=== PATIENT | female | born 1940 | race Asian ===

== ENCOUNTER 2017-06-18 22:35 | Inpatient (IN) | payer OTHER ==
[~2017-06-18] VITALS: Ht 165.1 cm; Wt 96.3 kg
[~2017-06-18 22:35] MED LIST: ASPI81TA3 PO; CARV12.540 PO; HYDR12.53 PO
[2017-06-18] MEDS ORDERED: morphine 4 MG/ML VIAL IV STA (23:56)
[2017-06-19] VITALS (12 sets, daily range): BP systolic 126–212; BP diastolic 61–86; PULSE 72–80; RESP 16–20; TEMP 98.2; Ht 165.1 cm; Wt 96.3 kg
[2017-06-19 00:21] LABS: BASOPHILS % 0.5 % (0.0-2.0); EOSINOPHILS # 0.2 10^3/ul (0.0-0.5); EOSINOPHILS % 2.8 % (0.0-7.0); HEMATOCRIT 36.6 % (37.0-47.0); HEMOGLOBIN 12.1 g/dl (12.0-16.0); LYMPHOCYTES # 2.4 10^3/ul (0.8-2.9); MEAN CORPUSCULAR HEMOGLOBIN 28.1 pg (29.0-33.0); MEAN CORPUSCULAR HGB CONC 33.1 g/dl (32.0-37.0); MEAN CORPUSCULAR VOLUME 84.9 fl (82.0-101.0); MEAN PLATELET VOLUME 9.1 fl (7.4-10.4); MONOCYTE # 0.6 10^3/ul (0.3-0.9); MONOCYTES % 9.7 % (0.0-11.0); NEUTROPHIL # 3.1 10^3/ul (1.6-7.5); NEUTROPHILS % 48.7 % (39.0-77.0); PLATELET COUNT 177 10^3/UL (140-415); RED BLOOD COUNT 4.31 10^6/ul (4.20-5.40); RED CELL DISTRIBUTION WIDTH 12.7 % (11.5-14.5); WHITE BLOOD COUNT 6.4 10^3/ul (4.8-10.8)
[2017-06-19 00:34] LABS: INR 0.92; PROTIME 12.4 Sec (12.2-14.2)
[2017-06-19 00:35] LABS: PARTIAL THROMBOPLASTIN TIME 21.9 Sec (25.0-35.0)
[2017-06-19] MEDS ORDERED: SOD CHLORIDE 0.9% 500 ML IV STA (00:38)
[2017-06-19 00:41] LABS: ANION GAP 22 (8-16); BLOOD UREA NITROGEN 26 mg/dl (7-20); CALCIUM 9.6 mg/dl (8.4-10.2); CARBON DIOXIDE 28 mmol/L (21-31); CHLORIDE 94 mmol/L (97-110); GLUCOSE 122 mg/dl (70-220); POTASSIUM 4.5 mmol/L (3.5-5.1); SODIUM 139 mmol/L (135-144)
[2017-06-19 00:53] LABS: TROPONIN-I < 0.012 ng/ml (0.00-0.12)
[2017-06-19] MEDS ORDERED: MELO-109 PO (00:55)
[2017-06-19] MEDS ORDERED: LOSA1TAB19 PO (00:55)
[2017-06-19] MEDS ORDERED: PRAV20TA63 PO ×2 (00:55→09:09)
[2017-06-19] MEDS ORDERED: IBUP200C11 PO (00:55)
[2017-06-19] MEDS ORDERED: ACET-141 PO (00:55)
--- NOTE | 2017-06-19 01:03 | RADRPT ---
PROCEDURE: XR Forearm. CLINICAL INDICATION: Pain. TECHNIQUE: AP and lateral views of the left forearm. COMPARISON: None available. FINDINGS: There is a fracture of the distal radial diaphysis with a full shaft with volar displacement of the distal fracture fragment The joint spaces are preserved. IMPRESSION: 1. Fracture of the distal radial diaphysis with a full shaft with volar displacement of the distal fracture fragment. RPTAT: HTAR .Eber Ness MD, MD Date Time Electronically viewed and signed by .Eber Ness MD, MD on 06/19/2017 01:03 .R/
--- NOTE | 2017-06-19 01:04 | RADRPT ---
PROCEDURE: Portable chest x-ray. CLINICAL INDICATION: Chest pain. TECHNIQUE: Portable AP view of the chest. COMPARISON: 09/28/2014. FINDINGS: There bibasilar opacities, probably atelectasis. No pulmonary edema or conolidation is identified. The cardiac silhouette is magnified. There are aortic calcifications. No pleural effusion is seen. There is no pneumothorax. IMPRESSION: 1. No evidence of acute cardiopulmonary disease. 2. Bibasilar atelectasis. 3. Aortic atherosclerosis. RPTAT: HTAR .Eber Ness MD, MD Date Time Electronically viewed and signed by .Eber Ness MD, MD on 06/19/2017 01:04 .R/
--- NOTE | 2017-06-19 01:06 | RADRPT ---
PROCEDURE: XR Wrist. CLINICAL INDICATION: Pain. TECHNIQUE: Three views of the left wrist. COMPARISON: None available. FINDINGS: There is a fracture of the distal radial diaphysis with a full shaft with volar displacement of the distal fracture fragment and overriding. The distal radioulnar joint is widened. IMPRESSION: 1. Fracture of the distal radial diaphysis with a full shaft with volar displacement of the distal fracture fragment and overriding. 2. Widening of the distal radioulnar joint, suggestive of a ligamentous injury. RPTAT: HTAR .Eber Ness MD, Date Time Electronically viewed and signed by .Eber Ness MD, on 06/19/2017 01:06 .R/
--- NOTE | 2017-06-19 01:07 | RADRPT ---
PROCEDURE: XR Elbow. CLINICAL INDICATION: Pain. TECHNIQUE: 4 views of the left elbow. COMPARISON: None available. FINDINGS: The anterior fat pad is visible, but not elevated. The posterior fat pad is not seen. The anterior humeral and radiocapitellar lines are normal. No fracture or dislocation is identified. The joint spaces are preserved. There is no significant soft tissue swelling. IMPRESSION: 1. No fracture or dislocation of the left elbow. RPTAT: HTAR .Eber Ness MD, Date Time Electronically viewed and signed by .Eber Ness MD, MD on 06/19/2017 01:07 .R/
[2017-06-19] MEDS ORDERED: morphine 4 MG/ML VIAL IV STA ×2 (01:13→04:42)
[2017-06-19] MEDS ORDERED: hydrALAzine 20 MG INJ IV ONE (01:30)
[2017-06-19] MEDS ORDERED: ONDANSETRON 4 MG INJ IV PRN ×2 (02:30→05:00)
[2017-06-19] MEDS ORDERED: ACETAMINOPHEN 325 MG TAB PO PRN ×2 (02:30→05:00)
--- NOTE | 2017-06-19 02:44 | ERA ---
ER Documentation Chief Complaint Date/Time DATE: 06/19/17 TIME: 02:37 Chief Complaint felt dizzy & fell down while standing & sustained left wrist pain/swelling HPI 76-year-old female with a history of hypertension and coronary artery disease presenting after a ground-level fall with left wrist pain. She was at prayer when she stood up, felt dizzy, and fell onto her left wrist. She denies any loss of consciousness or head trauma. She did not have any preceding chest pain , headache, or shortness of breath, however now she complains of sharp sensations in her chest and palpitations. She has shortness of breath, but this is her baseline per her family. She denies any numbness or tingling in her extremities, namely her left hand. She states the pain is in her wrist, 10 out of 10, radiating up her arm. She denies any other injuries or pain. No recent fevers, chills, dysuria, abdominal pain. ROS All systems reviewed and are negative except as per history of present illness. Medications Home Meds Reported Medications Pravastatin Sodium* (Pravastatin Sodium*) 20 Mg Tablet, 20 MG PO HS, TAB 06/19/17 Ibuprofen* (Advil*) 200 Mg Capsule, 200 MG PO Q6H Y for PAIN, CAP 06/19/17 Acetaminophen* (Acetaminophen*) 500 MG Extra Strength Tablet, 500 MG PO Q4H Y for PAIN AND OR ELEVATED TEMP, TAB 06/19/17 Losartan-Hydrochlorothiazide (Losartan-HCTZ) 50-12.5 Mg Tab, 1 TAB PO DAILY, TAB 06/19/17 Meloxicam* (Meloxicam*) Unknown Strength Tablet, 0 PO DAILY, #30 TAB 06/19/17 Carvedilol* (Coreg*) 12.5 Mg Tablet, 12.5 MG PO BID 07/07/12 Aspirin* (Aspirin* Chew) 81 Mg Tab.chew, 81 MG PO DAILY 07/07/12 Discontinued Reported Medications Hydrochlorothiazide (Hydrochlorothiazide) 12.5 Mg Capsule, 12.5 MG PO DAILY Y 07/07/12 Allergies Allergies: Coded Allergies: No Known Allergy (Unverified , 06/19/17) PMhx/Soc History of Surgery: Yes (ME, hernia, Right total knee) Anesthesia Reaction: No Hx Neurological Disorder: No Hx Respiratory Disorders: No Hx Cardiac Disorders: Yes (HTN) Hx Psychiatric Problems: No Hx Miscellaneous Medical Probl: No Hx Alcohol Use: No Hx Substance Use: No Hx Tobacco Use: No Smoking Status: Never smoker FmHx Family History: No diabetes Physical Exam Vitals Vital Signs Date Time Temp Pulse Resp B/P Pulse Ox O2 Delivery O2 Flow Rate FiO2 06/19/17 04:50 98.2 71 20 171/67 97 Room Air 06/19/17 02:12 98.2 73 18 175/76 98 Room Air 06/19/17 00:14 98.1 88 20 193/94 98 Room Air 06/18/17 22:41 97.8 77 20 238/100 100 Physical Exam Const: Well-appearing, nontoxic, in mild distress secondary to wrist pain Head: Atraumatic Eyes: Normal Conjunctiva, PERRLA, EOMI ENT: Normal External Ears, Nose and Mouth. Neck: Full range of motion..~ No meningismus. No JVD Resp: Clear to auscultation bilaterally Cardio: Regular rate and rhythm, no murmurs Abd: Soft, non tender, non distended. Normal bowel sounds Skin: No petechiae or rashes Back: No midline or flank tenderness Ext: No cyanosis, or edema. Left wrist with tenderness to palpation of the distal radius and ulna and tenderness to palpation of the wrist joint. Limited range of motion secondary to pain. Otherwise proximal forearm, elbow, humerus, shoulder nontender. Hand appears normal. Nontender. 2+ radial pulse. Able to grossly move her fingers. Sensations intact. Neur: Awake and alert and oriented 3, cranial nerves intact, strength and sensations intact in all 4 extremities, except left hand, poor effort on strength testing secondary to pain. Psych: Normal Mood and Affect Result Diagram: 06/19/17 0015 06/19/17 0015 Results 24 hrs Laboratory Tests Test 06/19/17 00:15 06/19/17 02:10 White Blood Count 6.410^3/ul Red Blood Count 4.3110^6/ul Hemoglobin 12.1g/dl Hematocrit 36.6% Mean Corpuscular Volume 84.9fl Mean Corpuscular Hemoglobin 28.1pg Mean Corpuscular Hemoglobin Concent 33.1g/dl Red Cell Distribution Width 12.7% Platelet Count 70702^3/UL Mean Platelet Volume 9.1fl Neutrophils % 48.7% Lymphocytes % 38.0% Monocytes % 9.7% Eosinophils % 2.8% Basophils % 0.5% Nucleated Red Blood Cells % 0.0/100WBC Neutrophils # 3.110^3/ul Lymphocytes # 2.410^3/ul Monocytes # 0.610^3/ul Eosinophils # 0.210^3/ul Basophils # 0.010^3/ul Nucleated Red Blood Cells # 0.010^3/ul Prothrombin Time 12.4Sec Prothrombin Time Ratio 1.0 INR International Normalized Ratio 0.92 Activated Partial Thromboplast Time 21.9Sec Sodium Level 139mmol/L Potassium Level 4.5mmol/L Chloride Level 94mmol/L Carbon Dioxide Level 28mmol/L Anion Gap 22 Blood Urea Nitrogen 26mg/dl Creatinine 0.80mg/dl Glucose Level 122mg/dl Calcium Level 9.6mg/dl Troponin I < 0.012ng/ml Urine Color YELLOW Urine Clarity CLEAR Urine pH 6.0 Urine Specific Spurger 1.011 Urine Ketones NEGATIVEmg/dL Urine Nitrite NEGATIVEmg/dL Urine Bilirubin NEGATIVEmg/dL Urine Urobilinogen NEGATIVEmg/dL Urine Leukocyte Esterase TRACELeu/ul Urine Microscopic RBC 2/HPF Urine Microscopic WBC 2/HPF Urine Hemoglobin NEGATIVEmg/dL Urine Glucose NEGATIVEmg/dL Urine Total Protein NEGATIVEmg/dl Current Medications Medications (Trade) Dose Ordered Sig/Annette Route PRN Reason Start Time Stop Time Status Last Admin Dose Admin Morphine Sulfate 4 mg 4 mg ONCE STAT IV 06/18/17 23:56 06/18/17 23:57 DC 06/19/17 00:19 Sodium Chloride (NS) 500 ml @ 500 mls/hr Q1H STAT IV 06/19/17 00:38 06/19/17 01:40 DC 06/19/17 00:44 Morphine Sulfate (morphine) 4 mg ONCE STAT IV 06/19/17 01:13 06/19/17 01:15 DC 06/19/17 01:20 Hydralazine HCl (Apresoline) 10 mg ONCE ONCE IV 06/19/17 01:30 06/19/17 01:31 DC Ondansetron HCl (Zofran Inj) 4 mg ER BRIDGE PRN IV NAUSEA AND/OR VOMITING 06/19/17 02:30 06/20/17 02:29 Acetaminophen (Tylenol Tab) 650 mg ER BRIDGE PRN PO MILD PAIN/FEVER 06/19/17 02:30 06/20/17 02:29 Morphine Sulfate (morphine) 4 mg ONCE STAT IV 06/19/17 04:42 06/19/17 04:43 DC 06/19/17 04:47 IV Flush (NS 3 ml) 3 ml PER PROTOCOL IV 06/19/17 05:00 UNV Ondansetron HCl (Zofran Inj) 4 mg Q6H PRN IV NAUSEA AND/OR VOMITING 06/19/17 05:00 UNV Acetaminophen (Tylenol Tab) 650 mg Q6H PRN PO PAIN LEVEL 1-3 OR FEVER 06/19/17 05:00 UNV Morphine Sulfate (morphine) 3 mg Q4H PRN IV pain 06/19/17 05:00 UNV Albuterol/ Ipratropium (Duoneb) 3 ml Q2H RESP THERAPY PRN HHN SHORTNESS OF BREATH 06/19/17 05:00 UNV Hydralazine HCl (Apresoline) 10 mg Q4H PRN IV sbp > 160 06/19/17 05:00 UNV Procedures/MDM EKG: Rate/Rhythm: Normal Sinus Rhythm QRS, ST, T-waves: No changes consistent w/ acute ischemia Impression: No evidence of ischemia or arrhythmia Imaging: Chest x-ray shows no acute abnormalities X-ray left wrist: IMPRESSION: 1. Fracture of the distal radial diaphysis with a full shaft with volar displacement of the distal fracture fragment and overriding. 2. Widening of the distal radioulnar joint, suggestive of a ligamentous injury. .Eber Ness MD, MD Date Time Electronically viewed and signed by .Eber Ness MD, on 06/19/2017 01:06 X-ray left forearm: IMPRESSION: 1. Fracture of the distal radial diaphysis with a full shaft with volar displacement of the distal fracture fragment. .Eber Ness MD, Date Time Electronically viewed and signed by .Eber Ness MD, MD on 06/19/2017 01:03 X-ray left elbow: No acute fracture dislocation Labs: CBC: no anemia or evidence of infection BMP: Elevated BUN and anion gap Troponin within normal limits UA: no evidence of infection MDM Patient is presenting after a ground-level fall from a near syncopal episode. Her vitals are notable for hypertension, likely secondary to pain in addition to having essential hypertension at baseline. Cardiac workup was started. X- rays of the wrist show evidence of a Galeazzi fracture. Currently she is neurovascularly intact. I spoke with Dr. Tian with orthopedics, will consult on the patient as she will need likely urgent surgery while in the hospital. Patient was given multiple doses of morphine with good pain control. IV fluids were also given as she seems to have some prerenal azotemia. I have a lower suspicion for aortic dissection, acute coronary syndrome, acute stroke or intracranial hemorrhage. Her blood pressure improved with pain control. Patient will be admitted to telemetry and will need preop clearance. Accepting Care Team: Current data and ongoing care discussed. Time: Time of admission Primary Provider: Petty Consulting: Asmita (Orthopedics) Outstanding Data: none Departure Diagnosis: Primary Impression: Near syncope Additional Impressions: Galeazzi's fracture of left radius, initial encounter for closed fracture Hypertensive urgency Condition: Serious ADINA GAMBOA MD Jun 19, 2017 02:44
[2017-06-19 02:45] LABS: ADD UMIC YES; UR ASCORBIC ACID NEGATIVE (NEGATIVE); UR BILIRUBIN (Dip) NEGATIVE (NEGATIVE); UR BLOOD (Dip) NEGATIVE (NEGATIVE); UR CLARITY CLEAR (CLEAR); UR COLOR YELLOW (YELLOW); UR GLUCOSE (Dip) NEGATIVE (NEGATIVE); UR KETONES (Dip) NEGATIVE (NEGATIVE); UR LEUKOCYTE ESTERASE (Dip) TRACE Leu/ul (NEGATIVE); UR NITRITE (Dip) NEGATIVE (NEGATIVE); UR RBC 2 /HPF (0-5); UR SPECIFIC GRAVITY (Dip) 1.011 (1.003-1.030); UR TOTAL PROTEIN (Dip) NEGATIVE (NEGATIVE); UR UROBILINOGEN (Dip) NEGATIVE (NEGATIVE)
[2017-06-19] MEDS ORDERED: hydrALAzine 20 MG INJ IV PRN (05:00)
[2017-06-19] MEDS ORDERED: ALBUTEROL/IPRATROPIUM (NEB) 3 ML AMP HHN PRN (05:00)
[2017-06-19] MEDS ORDERED: NACL 0.9% 3 ML SYG IV SCH (05:00)
[2017-06-19] MEDS: morphine 4 MG/ML VIAL IV PRN ×3 (08:55→18:39)
[2017-06-19] MEDS ORDERED: LOSA1TAB20 PO (09:09)
[2017-06-19] MEDS ORDERED: CARV6.2579 PO (09:09)
[2017-06-19] MEDS ORDERED: POTA2TAB14 PO (09:09)
[2017-06-19] MEDS ORDERED: MELO7.5O PO (09:09)
--- NOTE | 2017-06-19 09:17 | HP ---
Date/Time of Note Date/Time of Note DATE: 06/19/17 TIME: 09:12 Assessment/Plan Lines/Catheters IV Catheter Type (from Nrs): Saline Lock Urinary Cath still in place: No Assessment/Plan Assessment/Plan 1. Left distal radial fracture, status post ground-level fall -Patient is awaiting an ortho evaluation. In the time will provide pain medication as needed. -Given reported dizziness however, I will order a 2D echo and carotid ultrasound 2. Hypertensive urgency -Blood pressure is within acceptable range. Will adjust medication as needed 3. History of CAD -Continue home medication. 4. History of dyslipidemia -Continue statin HPI/ROS Admit Date/Time Admit Date/Time Jun 19, 2017 at 02:07 Hx of Present Illness This is a 76-year-old female with a history of hypertension dyslipidemia and CAD who presented to the emergency department complaining of left wrist pain status post ground-level fall. X-ray in the ER shows distal radial fracture. Patient reported feeling dizzy prior to falling down. Her initial lecture when she came to the ER was 238/100. Denied chest pain shortness of breath fevers chills nausea vomiting. . PMH/Family/Social Social History Smoking Status: Never smoker Exam/Review of Systems Vital Signs Vitals Vital Signs Date Time Temp Pulse Resp B/P Pulse Ox O2 Delivery O2 Flow Rate FiO2 06/19/17 08:12 72 06/19/17 08:07 97.7 18 126/81 97 06/19/17 04:50 Room Air Labs Result Diagram: 06/19/17 0015 06/19/17 0015 Medications Medications Current Medications Ondansetron HCl (Zofran Inj) 4 mg Q6H PRN IV NAUSEA AND/OR VOMITING; Start at 05:00 Acetaminophen (Tylenol Tab) 650 mg Q6H PRN PO PAIN LEVEL 1-3 OR FEVER; Start at 05:00 Morphine Sulfate (morphine) 3 mg Q4H PRN IV pain Last administered on 08:55; Admin Dose 3 MG; Start 06/19/17 at 05:00 Hydralazine HCl (Apresoline) 10 mg Q4H PRN IV sbp > 160 Last administered on 06:25; Admin Dose 10 MG; Start 06/19/17 at 05:00 ISSAC WALTER MD Jun 19, 2017 09:17
[2017-06-19] MEDS ORDERED: ACETAMINOPHEN 500 MG TAB PO PRN (14:30)
[2017-06-19] MEDS: LOSARTAN 50 MG TAB PO SCH (15:44)
[2017-06-19] MEDS: HYDROCHLOROTHIAZIDE 25 MG TAB PO SCH (15:44)
[2017-06-19] MEDS: ATORVASTATIN 10 MG TAB PO SCH (20:40)
[2017-06-19] MEDS ORDERED: NON-FORMULARY/PATIENT OWN MED (Pravastatin Sodium* 20 MG) PO SCH (21:00)
[2017-06-20] VITALS (12 sets, daily range): BP systolic 120–156; BP diastolic 58–67; PULSE 71–89; RESP 16–19
[2017-06-20] MEDS: morphine 4 MG/ML VIAL IV PRN ×5 (00:45→20:36)
[2017-06-20 08:04] LABS: BASOPHILS % 0.1 % (0.0-2.0); EOSINOPHILS # 0.2 10^3/ul (0.0-0.5); EOSINOPHILS % 3.1 % (0.0-7.0); HEMATOCRIT 33.2 % (37.0-47.0); HEMOGLOBIN 10.4 g/dl (12.0-16.0); LYMPHOCYTES # 2.2 10^3/ul (0.8-2.9); LYMPHOCYTES % 29.5 % (15.0-51.0); MEAN CORPUSCULAR HEMOGLOBIN 27.3 pg (29.0-33.0); MEAN CORPUSCULAR HGB CONC 31.3 g/dl (32.0-37.0); MEAN CORPUSCULAR VOLUME 87.1 fl (82.0-101.0); MEAN PLATELET VOLUME 9.2 fl (7.4-10.4); MONOCYTE # 0.7 10^3/ul (0.3-0.9); MONOCYTES % 9.4 % (0.0-11.0); NEUTROPHIL # 4.2 10^3/ul (1.6-7.5); NEUTROPHILS % 57.6 % (39.0-77.0); PLATELET COUNT 180 10^3/UL (140-415); RED BLOOD COUNT 3.81 10^6/ul (4.20-5.40); RED CELL DISTRIBUTION WIDTH 13.4 % (11.5-14.5); WHITE BLOOD COUNT 7.3 10^3/ul (4.8-10.8)
[2017-06-20 08:32] LABS: ALBUMIN 3.7 g/dl (3.3-4.9); ALBUMIN/GLOBULIN RATIO 1.19; BILIRUBIN,INDIRECT 0.5 mg/dl (0-1.1); BILIRUBIN,TOTAL 0.5 mg/dl (0.2-1.3); CALCIUM 8.8 mg/dl (8.4-10.2); CREATININE 1.09 mg/dl (0.44-1.00); MAGNESIUM 1.7 mg/dl (1.7-2.5); PHOSPHORUS 4.2 mg/dl (2.5-4.9); POTASSIUM 4.4 mmol/L (3.5-5.1); TOTAL PROTEIN 6.8 g/dl (6.1-8.1)
[2017-06-20] MEDS: LOSARTAN 50 MG TAB PO SCH (08:36)
[2017-06-20] MEDS: HYDROCHLOROTHIAZIDE 25 MG TAB PO SCH (08:36)
[2017-06-20] MEDS ORDERED: NON-FORMULARY/PATIENT OWN MED (Losartan-Hydrochlorothiazide (Losartan-HCTZ) 1 TAB) PO SCH (09:00)
--- NOTE | 2017-06-20 09:01 | RADRPT ---
PROCEDURE: US carotid arteries. CLINICAL INDICATION: Dizziness. TECHNIQUE: Multiple sonographic images of the carotid arteries and vertebral arteries were obtaine d utilizing vazquez scale, duplex, and color-flow imaging. The images were reviewed on a PACS workstati on. COMPARISON: No prior studies are available for comparison. FINDINGS: Evaluation of the right carotid bifurcation region reveals mild atherosclerotic disease. Evaluation of the left carotid bifurcation region reveals mild atherosclerotic disease. There is antegrade flow within the vertebral arteries bilaterally. RIGHT CAROTID MEASUREMENTS: Common Carotid [id number] (cm/sec) Internal Carotid Artery 103 (cm/sec) External Carotid Artery 124 (cm/sec) Vertebral Artery 86 (cm/sec) Internal Carotid/Common Carotid1.0 LEFT CAROTID MEASUREMENTS: Common Carotid [id number] (cm/sec) Internal Carotid Artery 117 (cm/sec) External Carotid Artery 82 (cm/sec) Vertebral Artery 64 (cm/sec) Internal Carotid/Common Carotid1.0 Validated velocity measurements with angiographic measurements. Velocity criteria are extrapolated f rom diameter data as defined by the Society of Radiologists in Ultrasound Consensus Conference. Radi ology 2003; 229;340-346. This study does indirectly reference the measurement of the distal ICA yenny meter as the denominator for stenosis measurement. IMPRESSION: 1. Less than 50% stenosis bilaterally in the internal carotid arteries. 2. Normal antegrade flow in the vertebral arteries bilaterally. RPTAT: QQ SRU Consensus Conference Criteria for the Diagnosis of Carotid Artery Stenosis* Degree of Stenosis, % ICA PSV, cm/sec Plaque Estimate, % ICA/CCA PSV Ratio Normal <125 None <2.0 <50 <125 <50 <2.0 50 69 125-230 >50 2.0-4.0 >70 but less than near occlusion >230 >50 <4.0 Near occlusion High, low, or undetectable Visible Variable Total occlusion Undetectable Visible, no detectable lumen Not applicable *Cartoid artery stenosis: vazquez-scale and Doppler US diagnosis. Society of Radiologists in Ultrasound Consensus Conference. Radiology 2003; 229: 340-346 .Deandre Fuentes MD, Date Time Electronically viewed and signed by .Deandre Fuentes MD, on 06/20/2017 09:01 .R/
--- NOTE | 2017-06-20 12:47 | CONS ---
Date/Time of Note Date/Time of Note DATE: 06/20/17 TIME: 12:45 Assessment/Plan Assessment/Plan Additional Assessment/Plan Humerus fracture CAD Hypertension Dyslipidemia Anemia she has been ruled out for ACS with serial negative troponin's Awaiting echo prior to clearing for surgery Continue Coreg Continue Lipitor Consultation Date/Type/Reason Admit Date/Time Jun 19, 2017 at 02:07 Initial Consult Date Exam/Review of Systems Vital Signs Vitals Vital Signs Date Time Temp Pulse Resp B/P Pulse Ox O2 Delivery O2 Flow Rate FiO2 06/20/17 12:24 71 06/20/17 11:49 98.7 18 134/58 100 06/19/17 04:50 Room Air Intake and Output 06/19/17 06/19/17 06/20/17 15:00 23:00 07:00 Intake Total 750 ml 600 ml Balance 750 ml 600 ml Exam Constitutional: alert, oriented Head: atraumatic, normocephalic Neck: non-tender, supple Respiratory: clear to auscultation Cardiovascular: regular rate and rhythm Gastrointestinal: nl liver, spleen, non-tender, soft Extremities: normal pulses Results Result Diagram: 06/20/17 0500 06/20/17 0719 Results 24 hrs Laboratory Tests Test 06/19/17 18:43 06/20/17 01:02 06/20/17 05:00 06/20/17 07:19 Troponin I < 0.012 < 0.012 White Blood Count 7.3 Red Blood Count 3.81 L Hemoglobin 10.4 L Hematocrit 33.2 L Mean Corpuscular Volume 87.1 Mean Corpuscular Hemoglobin 27.3 L Mean Corpuscular Hemoglobin Concent 31.3 L Red Cell Distribution Width 13.4 Platelet Count 180 Mean Platelet Volume 9.2 Neutrophils % 57.6 Lymphocytes % 29.5 Monocytes % 9.4 Eosinophils % 3.1 Basophils % 0.1 Nucleated Red Blood Cells % 0.0 Neutrophils # 4.2 Lymphocytes # 2.2 Monocytes # 0.7 Eosinophils # 0.2 Basophils # 0.0 Nucleated Red Blood Cells # 0.0 Sodium Level 135 Potassium Level 4.4 Chloride Level 93 L Carbon Dioxide Level 29 Anion Gap 17 H Blood Urea Nitrogen 28 H Creatinine 1.09 H Glucose Level 124 Calcium Level 8.8 Phosphorus Level 4.2 Magnesium Level 1.7 Total Bilirubin 0.5 Direct Bilirubin 0.00 Indirect Bilirubin 0.5 Aspartate Amino Transf (AST/SGOT) 19 Alanine Aminotransferase (ALT/SGPT) 25 Alkaline Phosphatase 57 Total Protein 6.8 Albumin 3.7 Globulin 3.10 Albumin/Globulin Ratio 1.19 Medications Medications Current Medications Ondansetron HCl (Zofran Inj) 4 mg Q6H PRN IV NAUSEA AND/OR VOMITING; Start at 05:00 Morphine Sulfate (morphine) 3 mg Q4H PRN IV pain Last administered on 08:35; Admin Dose 3 MG; Start 06/19/17 at 05:00 Hydralazine HCl (Apresoline) 10 mg Q4H PRN IV sbp > 160 Last administered on 06:25; Admin Dose 10 MG; Start 06/19/17 at 05:00 Acetaminophen (Tylenol Tab) 500 mg Q4H PRN PO MILD PAIN AND OR ELEVATED TEMP; Start 06/19/17 at 14:30 Carvedilol (Coreg) 6.25 mg BID PO Last administered on 06/20/17 08:37; Admin Dose 6.25 MG; Start 06/19/17 at 21:00 Atorvastatin Calcium (Lipitor) 10 mg DAILY@21 PO Last administered on 20:40; Admin Dose 10 MG; Start 06/19/17 at 21:00 Losartan Potassium (Cozaar) 100 mg DAILY PO Last administered on 06/20/17 08: 36; Admin Dose 100 MG; Start 06/19/17 at 15:00 Hydrochlorothiazide (Hydrochlorothiazide) 25 mg DAILY PO Last administered on 08:36; Admin Dose 25 MG; Start 06/19/17 at 15:00 BRENDAN APPLE M.D. Jun 20, 2017 12:47
--- NOTE | 2017-06-20 14:06 | RADRPT ---
Echocardiogram Report Patient Name: KAYLIE MITCHELL Gender: Female Date: 1940 Study Date: 20-Jun-2017 Night Warehouse Manager: SANDY Location: I Ref. Physician: ALFIE APPLE Quality: Technically Difficult Study Procedures: Transthoracic echocardiogram with complete 2D, M-Mode, and doppler examination. Indications: Pre-op. 2D/M Mode Doppler Measurement Value Normal Ranges Measurement Value Normal Ranges AoR Diam MM 3.2 cm AV Peak George 1.4 m/sec ACS MM 2.1 cm AV Peak PG 7.8 mmHg LVIDd 2D 3.2 3.5 - 5.6 cm LVOT Peak George 1.1 m/sec LVIDs 2D 1.8 2.1 - 4.1 cm LVOT Peak PG 4.6 mmHg LVPWd 2D 1.3 0.6 - 1.1 cm MV E Peak George 0.5 m/sec IVSd 2D 1.3 0.6 - 1.1 cm MV A Peak George 0.7 m/sec EDV 2D 40.4 cm3 MV E/A 0.8 ESV 2D 6.0 cm3 MV Decel Time 240 msec LA Dimen 2D 3.4 2.3 - 4.0 cm MV Decel [place] 2 MV E/A 0.8 PV Peak George 0.9 m/sec PV Peak PG 3.0 mmHg Findings Left Ventricle: Normal left ventricular systolic function. Normal left ventricular cavity size. Mild concentric left ventricular hypertrophy. Ejection fraction is visually estimated at 65 %. Tissue Doppler/Mitral Doppler indices are consistent with impaired relaxation (Stage I diastolic dysfunction). E/E`=6. Right Ventricle: Normal right ventricular size. Normal right ventricular systolic function. Left Atrium: The left atrium is normal in size. Right Atrium: The right atrium is normal in size. Atrial Septum: Normal atrial septum. Mitral Valve: Normal appearance of the mitral valve. No mitral valve regurgitation is seen. Aortic Valve: Normal appearance of the aortic valve. No significant aortic stenosis or insufficiency. Tricuspid Valve: Normal appearance and function of the tricuspid valve with trace physiologic regurgitation. Pulmonic Valve: Normal pulmonic valve appearance. Pericardium: Normal pericardium with no significant pericardial effusion. Aorta: Normal aortic root. IVC: Normal size and normal respiratory collapse consistent with normal right atrial pressure. Pulmonary Artery: Normal pulmonary artery size. Conclusions 1.Normal left ventricular systolic function. Normal left ventricular cavity size. Mild concentric left ventricular hypertrophy. Ejection fraction is visually estimated at 65 %. Tissue Doppler/Mitral Doppler indices are consistent with impaired relaxation (Stage I diastolic dysfunction). E/E`=6. 2.Normal right ventricular size. Normal right ventricular systolic function. 3.Normal appearance of the mitral valve. No mitral valve regurgitation is seen. 4.Normal appearance of the aortic valve. No significant aortic stenosis or insufficiency. 5.Normal appearance and function of the tricuspid valve with trace physiologic regurgitation. Electronically Signed By: Alfie Apple 20-Jun-2017 14:05:51 -0700 Patient Name: KAYLIE MITCHELL Study Date: 20-Jun-2017 [id number]
[2017-06-20] MEDS ORDERED: MAGNESIUM HYDROXIDE 30ML CUP PO PRN (18:30)
[2017-06-20] MEDS: ATORVASTATIN 10 MG TAB PO SCH (20:32)
[2017-06-20] MEDS: DOCUSATE SODIUM 100 MG CAP PO SCH (20:32)
[2017-06-21] VITALS (11 sets, daily range): BP systolic 116–131; BP diastolic 56–65; PULSE 73–91; RESP 16–19
[2017-06-21] MEDS: morphine 4 MG/ML VIAL IV PRN ×3 (03:19→13:57)
[2017-06-21] MEDS ORDERED: EPHEDrine SULFATE 50 MG/5 ML SYG ONE (07:00)
--- NOTE | 2017-06-21 08:57 | PN ---
Date/Time of Note Date/Time of Note LATE ENTRY DATE: 06/20/17 Assessment/Plan VTE Prophylaxis VTE Prophylaxis Intervention: SCD's Lines/Catheters IV Catheter Type (from Nrsg): Saline Lock Urinary Cath still in place: No Assessment/Plan Chief Complaint/Hosp Course Assessment and plan 1. Left distal radial fracture status post ground level fall. Patient to be seen by orthopedic surgeon. Continue with analgesics. Follow-up with orthopedic recommendations 2. Hypertensive urgency. Stable at present. Will provide antihypertensives as needed 3. History of CAD. Catering And Events Manager following. Noted with preserved EF. Continue optimization with cardiovascular medications 4. Dyslipidemia. Continue on statin medication Disposition and plan: Patient is mild to moderate risk for orthopedic intervention but the benefits of intervention make it reasonable to proceed. Tentative plan for orthopedic were intervention. Will follow up with recommendations. Discussed plan of care with Problems: Subjective 24 Hr Interval Summary Free Text/Dictation No apparent distress and at this time. Comfortable at present. Exam/Review of Systems Vital Signs Vitals Vital Signs Date Time Temp Pulse Resp B/P Pulse Ox O2 Delivery O2 Flow Rate FiO2 06/21/17 08:12 76 06/21/17 07:56 98.5 19 131/64 100 06/19/17 04:50 Room Air Intake and Output 06/20/17 06/20/17 06/21/17 15:00 23:00 07:00 Intake Total 650 ml 120 ml Balance 650 ml 120 ml Exam Constitutional: alert, oriented Psych: nl mood/affect Respiratory: normal air movement Cardiovascular: regular rate and rhythm Gastrointestinal: soft Musculoskeletal: other (Left arm in cast) Neurological: AUTOMOTIVE GENERAL MANAGER II-XII intact, nl mental status, nl speech Results Result Diagram: 06/20/17 0500 06/20/17 0719 Medications Medications Current Medications Ondansetron HCl (Zofran Inj) 4 mg Q6H PRN IV NAUSEA AND/OR VOMITING; Start at 05:00 Morphine Sulfate (morphine) 3 mg Q4H PRN IV pain Last administered on 03:19; Admin Dose 3 MG; Start 06/19/17 at 05:00 Hydralazine HCl (Apresoline) 10 mg Q4H PRN IV sbp > 160 Last administered on 06:25; Admin Dose 10 MG; Start 06/19/17 at 05:00 Acetaminophen (Tylenol Tab) 500 mg Q4H PRN PO MILD PAIN AND OR ELEVATED TEMP; Start 06/19/17 at 14:30 Carvedilol (Coreg) 6.25 mg BID PO Last administered on 06/20/17 20:32; Admin Dose 6.25 MG; Start 06/19/17 at 21:00 Atorvastatin Calcium (Lipitor) 10 mg DAILY@21 PO Last administered on 20:32; Admin Dose 10 MG; Start 06/19/17 at 21:00 Losartan Potassium (Cozaar) 100 mg DAILY PO Last administered on 06/20/17 08: 36; Admin Dose 100 MG; Start 06/19/17 at 15:00 Hydrochlorothiazide (Hydrochlorothiazide) 25 mg DAILY PO Last administered on 08:36; Admin Dose 25 MG; Start 06/19/17 at 15:00 Docusate Sodium (Colace) 100 mg BID PO Last administered on 06/20/17 20:32; Admin Dose 100 MG; Start 06/20/17 at 21:00 Magnesium Hydroxide (Milk Of Mag) 30 ml DAILY PRN PO CONSTIPATION; Start at 18:30 RICH GUZMÁN Jun 21, 2017 08:57
[2017-06-21] MEDS: DOCUSATE SODIUM 100 MG CAP PO SCH ×2 (09:00→21:00)
[2017-06-21] MEDS: LOSARTAN 50 MG TAB PO SCH (09:00)
[2017-06-21] MEDS: HYDROCHLOROTHIAZIDE 25 MG TAB PO SCH (09:00)
--- NOTE | 2017-06-21 14:16 | CONS ---
Date/Time of Note Date/Time of Note DATE: 06/21/17 TIME: 14:12 Assessment/Plan Assessment/Plan Chief Complaint/Hosp Course IMP: 1.s/p fall 2.Kjg-pm-gbjastsg trop x 3/NL EF by echo 3.Radial fracture 4.HTN 5.cad Recc: -Tele -Contnue coreg/losartan/statin -pain control -pnding ortho consult Problems: Consultation Date/Type/Reason Admit Date/Time Jun 19, 2017 at 02:07 Initial Consult Date 06/20/2017 Type of Consultation: cardiology Reason for Consultation Pre-op Referring Provider: LUDIVINA HSU Exam/Review of Systems Vital Signs Vitals Vital Signs Date Time Temp Pulse Resp B/P Pulse Ox O2 Delivery O2 Flow Rate FiO2 06/21/17 12:11 75 06/21/17 11:58 98.4 18 123/63 100 06/19/17 04:50 Room Air Intake and Output 06/20/17 06/20/17 06/21/17 15:00 23:00 07:00 Intake Total 650 ml 120 ml Balance 650 ml 120 ml Exam Review of Systems: CONSTITUTIONAL: No fevers, chills. PULMONARY: No sob CARDIOVASCULAR: No chest pain/palpitations GASTROINTESTINAL: No nausea/vomiting. GENITOURINARY: No hematuria/dysuria. MUSCULOSKELETAL: L arm pain PSYCHIATRIC: The patient denies depression. NEUROLOGIC: No weakness Constitutional: alert Psych: no complaints Head: normocephalic ENMT: mucosa pink and moist Neck: jvd (8 cm water), supple Respiratory: clear to auscultation Cardiovascular: regular rate and rhythm Gastrointestinal: non-tender, soft Musculoskeletal: muscle tone (normal), other (arm in cast) Extremities: edema (none) Neurological: other (No focal deficits) Results Result Diagram: 06/20/17 0500 06/20/17 0719 Medications Medications Current Medications Ondansetron HCl (Zofran Inj) 4 mg Q6H PRN IV NAUSEA AND/OR VOMITING Last administered on 06/21/17 09:35; Admin Dose 4 MG; Start 06/19/17 at 05:00 Morphine Sulfate (morphine) 3 mg Q4H PRN IV pain Last administered on 13:57; Admin Dose 3 MG; Start 06/19/17 at 05:00 Hydralazine HCl (Apresoline) 10 mg Q4H PRN IV sbp > 160 Last administered on 06:25; Admin Dose 10 MG; Start 06/19/17 at 05:00 Acetaminophen (Tylenol Tab) 500 mg Q4H PRN PO MILD PAIN AND OR ELEVATED TEMP; Start 06/19/17 at 14:30 Carvedilol (Coreg) 6.25 mg BID PO Last administered on 06/20/17 20:32; Admin Dose 6.25 MG; Start 06/19/17 at 21:00 Atorvastatin Calcium (Lipitor) 10 mg DAILY@21 PO Last administered on 20:32; Admin Dose 10 MG; Start 06/19/17 at 21:00 Losartan Potassium (Cozaar) 100 mg DAILY PO Last administered on 06/20/17 08: 36; Admin Dose 100 MG; Start 06/19/17 at 15:00 Hydrochlorothiazide (Hydrochlorothiazide) 25 mg DAILY PO Last administered on 08:36; Admin Dose 25 MG; Start 06/19/17 at 15:00 Docusate Sodium (Colace) 100 mg BID PO Last administered on 06/20/17 20:32; Admin Dose 100 MG; Start 06/20/17 at 21:00 Magnesium Hydroxide (Milk Of Mag) 30 ml DAILY PRN PO CONSTIPATION; Start at 18:30 BUCK EMANUEL Jun 21, 2017 14:16
--- NOTE | 2017-06-21 14:36 | PN ---
Date/Time of Note Date/Time of Note DATE: 06/21/17 TIME: 14:34 Assessment/Plan VTE Prophylaxis VTE Prophylaxis Intervention: SCD's Lines/Catheters IV Catheter Type (from Nrs): Saline Lock Urinary Cath still in place: No Assessment/Plan Chief Complaint/Hosp Course Assessment and plan 1. Left distal radial fracture status post ground level fall. Patient to be seen by orthopedic surgeon. Continue with analgesics. Follow-up with orthopedic recommendations 2. Hypertensive urgency. Stable at present. Will provide antihypertensives as needed 3. History of CAD. Box Bender following. Noted with preserved EF. Continue optimization with cardiovascular medications 4. Dyslipidemia. Continue on statin medication Disposition and plan: Patient is mild to moderate risk for orthopedic intervention but the benefits of intervention make it reasonable to proceed. Tentative plan for orthopedic were intervention. Awaiting surgeon input. Continue with analgesics. Discussed plan of care with Problems: Subjective 24 Hr Interval Summary Free Text/Dictation Resting at this time. No apparent distress and at this time. Comfortable at present Exam/Review of Systems Vital Signs Vitals Vital Signs Date Time Temp Pulse Resp B/P Pulse Ox O2 Delivery O2 Flow Rate FiO2 06/21/17 12:11 75 06/21/17 11:58 98.4 18 123/63 100 06/19/17 04:50 Room Air Intake and Output 06/20/17 06/20/17 06/21/17 15:00 23:00 07:00 Intake Total 650 ml 120 ml Balance 650 ml 120 ml Exam Constitutional: alert, oriented Psych: nl mood/affect Respiratory: normal air movement Cardiovascular: regular rate and rhythm Gastrointestinal: soft Musculoskeletal: other (Left arm in cast) Neurological: REVIEW SCHEDULING COORDINATOR II-XII intact, nl mental status, nl speech Results Result Diagram: 06/20/17 0500 06/20/17 0719 Medications Medications Current Medications Ondansetron HCl (Zofran Inj) 4 mg Q6H PRN IV NAUSEA AND/OR VOMITING Last administered on 06/21/17 09:35; Admin Dose 4 MG; Start 06/19/17 at 05:00 Morphine Sulfate (morphine) 3 mg Q4H PRN IV pain Last administered on 13:57; Admin Dose 3 MG; Start 06/19/17 at 05:00 Hydralazine HCl (Apresoline) 10 mg Q4H PRN IV sbp > 160 Last administered on 06:25; Admin Dose 10 MG; Start 06/19/17 at 05:00 Acetaminophen (Tylenol Tab) 500 mg Q4H PRN PO MILD PAIN AND OR ELEVATED TEMP; Start 06/19/17 at 14:30 Carvedilol (Coreg) 6.25 mg BID PO Last administered on 06/20/17 20:32; Admin Dose 6.25 MG; Start 06/19/17 at 21:00 Atorvastatin Calcium (Lipitor) 10 mg DAILY@21 PO Last administered on 20:32; Admin Dose 10 MG; Start 06/19/17 at 21:00 Losartan Potassium (Cozaar) 100 mg DAILY PO Last administered on 06/20/17 08: 36; Admin Dose 100 MG; Start 06/19/17 at 15:00 Hydrochlorothiazide (Hydrochlorothiazide) 25 mg DAILY PO Last administered on 08:36; Admin Dose 25 MG; Start 06/19/17 at 15:00 Docusate Sodium (Colace) 100 mg BID PO Last administered on 06/20/17 20:32; Admin Dose 100 MG; Start 06/20/17 at 21:00 Magnesium Hydroxide (Milk Of Mag) 30 ml DAILY PRN PO CONSTIPATION; Start at 18:30 RICH GUZMÁN Jun 21, 2017 14:36
[2017-06-21] MEDS ORDERED: POLYMYXIN/BACITRACIN 1L IRRIG ONE (18:37)
--- NOTE | 2017-06-21 18:53 | HPN ---
Date/Time of Note Date/Time of Note DATE: 06/21/17 TIME: 18:52 Interval H&P Admission Note Pt. seen H&P reviewed: No system changes KAVEH HUTCHISON MD Jun 21, 2017 18:53
[2017-06-21] MEDS ORDERED: LIDOCAINE 2% (SDV) 5 ML INJ ONE (19:21)
[2017-06-21] MEDS ORDERED: MIDAZOLAM 1 MG/ML 2 ML INJ ONE (19:21)
[2017-06-21] MEDS ORDERED: FENTAnyl 50 MCG/ML VIAL ONE (19:21)
[2017-06-21] MEDS ORDERED: PROPOFOL 20 ML ONE (19:21)
[2017-06-21] MEDS ORDERED: PHENYLephrine (100 MCG/ML) 5ML SYG ONE (19:29)
[2017-06-21] MEDS ORDERED: ROPIVACAINE 0.5 % 30 ML VIAL ONE (19:31)
[2017-06-21] MEDS ORDERED: CEFAZOLIN 1 GM INJ ONE (19:38)
[2017-06-21] MEDS ORDERED: METOCLOPRAMIDE 10 MG INJ ONE (20:01)
[2017-06-21] MEDS ORDERED: DEXAMETHASONE 4 MG/ML 1 ML INJ ONE (20:01)
[2017-06-21] MEDS ORDERED: ACETAMINOPHEN 1000MG/100ML IV 100 ML ONE (20:01)
[2017-06-21] MEDS ORDERED: ONDANSETRON 4 MG INJ ONE (20:01)
[2017-06-21] MEDS ORDERED: METOPROLOL 5 MG INJ ONE (20:45)
[2017-06-21] MEDS: ATORVASTATIN 10 MG TAB PO SCH (21:00)
[2017-06-21] MEDS ORDERED: MEPERIDINE 25 MG INJ IV PRN (23:00)
[2017-06-21] MEDS: HYDROmorphONE 1 MG/ML SYG IV SCH ×5 (23:00→23:20)
[2017-06-21] MEDS ORDERED: hydrALAzine 20 MG INJ IV PRN (23:00)
[2017-06-21] MEDS ORDERED: LABETALOL HCL 20MG INJ IV PRN (23:00)
[2017-06-21] MEDS ORDERED: ONDANSETRON 4 MG INJ IV PRN (23:00)
[2017-06-21] MEDS ORDERED: HYDROmorphONE 1 MG/ML SYG IV PRN (23:00)
[2017-06-21] MEDS ORDERED: PROCHLORPERAZINE 10 MG INJ IV PRN (23:00)
[2017-06-21] MEDS ORDERED: DIPHENHYDRAMINE 50 MG INJ IV PRN (23:00)
[2017-06-21] MEDS: FENTAnyl 50 MCG/ML VIAL IV SCH (23:00)
[2017-06-21] MEDS ORDERED: morphine 2 MG INJ IV PRN (23:30)
[2017-06-21] MEDS: SOD CHLORIDE 0.9% 1,000 ML IV SCH (23:30)
[2017-06-22] VITALS (11 sets, daily range): BP systolic 98–173; BP diastolic 52–74; PULSE 79–103; RESP 17–19
[2017-06-22] MEDS: FENTAnyl 50 MCG/ML VIAL IV SCH ×3 (04:00→14:00)
[2017-06-22] MEDS: CEFAZOLIN 1 GM/50 ML (PMX) 50 ML IVPB SCH ×3 (05:41→21:32)
[2017-06-22] MEDS: HYDROCHLOROTHIAZIDE 25 MG TAB PO SCH (09:17)
[2017-06-22] MEDS: DOCUSATE SODIUM 100 MG CAP PO SCH ×2 (09:17→21:31)
[2017-06-22] MEDS: LOSARTAN 50 MG TAB PO SCH (09:17)
--- NOTE | 2017-06-22 09:44 | RADRPT ---
PROCEDURE: XR Forearm. CLINICAL INDICATION: Fracture. Postoperative. TECHNIQUE: 3 views of the left forearm were obtained. COMPARISON: Left forearm 06/19/2017 FINDINGS: There has been interval open reduction and internal fixation of the fracture involving the distal ra dial diaphysis. The plate and screw fixation device appears intact. There is good alignment of the fracture fragments. There is diffuse soft tissue edema. Multiple skin nalini project over the forearm. IMPRESSION: Interval open reduction and internal fixation of the fracture involving the distal radial diaphysis. The plate and screw fixation device appears intact. There is good alignment of the fracture fragm ents. RPTAT: PP Physician Chun Date Time Electronically viewed and signed by Physician Chun on 06/22/2017 09:43 /
[2017-06-22] MEDS: SOD CHLORIDE 0.9% 1,000 ML IV SCH (12:00)
[2017-06-22] MEDS: HYDROCODONE/APAP (5/325) TAB PO PRN ×2 (13:36→21:35)
--- NOTE | 2017-06-22 13:37 | PN ---
Date/Time of Note Date/Time of Note DATE: 06/22/17 TIME: 13:34 Assessment/Plan VTE Prophylaxis VTE Prophylaxis Intervention: SCD's Lines/Catheters IV Catheter Type (from Nrs): Peripheral IV Urinary Cath still in place: No Assessment/Plan Chief Complaint/Hosp Course 1. Left distal radial fracture status post ground level fall-arm now in a splint -Follow-up with orthopedic recommendations, continue PT 2. Hypertensive urgency. Stable at present. Will provide antihypertensives as needed 3. History of CAD. General Engineer following. Noted with preserved EF. Continue optimization with cardiovascular medications 4. Dyslipidemia. Continue on statin medication Prophylaxis: SCDs Disposition and plan: Patient is mild to moderate risk for orthopedic intervention but the benefits of intervention make it reasonable to proceed if needed. Continue with analgesics. If there is no indication for surgery anticipate DC home in 1-2 days Problems: Subjective 24 Hr Interval Summary Constitutional: no complaints Exam/Review of Systems Vital Signs Vitals Vital Signs Date Time Temp Pulse Resp B/P Pulse Ox O2 Delivery O2 Flow Rate FiO2 06/22/17 12:14 93 06/22/17 11:55 98.1 17 98/52 94 06/21/17 23:30 Nasal Cannula 2.0 Intake and Output 06/21/17 06/21/17 06/22/17 15:00 23:00 07:00 Intake Total 700 ml Balance 700 ml Exam Constitutional: alert Respiratory: clear to auscultation Cardiovascular: regular rate and rhythm Gastrointestinal: soft, No distended Musculoskeletal: No nl extremities to inspection Results Result Diagram: 06/20/17 0500 06/20/17 0719 Medications Medications Current Medications Ondansetron HCl (Zofran Inj) 4 mg Q6H PRN IV NAUSEA AND/OR VOMITING Last administered on 06/21/17 09:35; Admin Dose 4 MG; Start 06/19/17 at 05:00 Hydralazine HCl (Apresoline) 10 mg Q4H PRN IV sbp > 160 Last administered on 06:25; Admin Dose 10 MG; Start 06/19/17 at 05:00 Acetaminophen (Tylenol Tab) 500 mg Q4H PRN PO MILD PAIN AND OR ELEVATED TEMP; Start 06/19/17 at 14:30 Carvedilol (Coreg) 6.25 mg BID PO Last administered on 06/22/17 09:17; Admin Dose 6.25 MG; Start 06/19/17 at 21:00 Atorvastatin Calcium (Lipitor) 10 mg DAILY@21 PO Last administered on 20:32; Admin Dose 10 MG; Start 06/19/17 at 21:00 Losartan Potassium (Cozaar) 100 mg DAILY PO Last administered on 06/22/17 09: 17; Admin Dose 100 MG; Start 06/19/17 at 15:00 Hydrochlorothiazide (Hydrochlorothiazide) 25 mg DAILY PO Last administered on 09:17; Admin Dose 25 MG; Start 06/19/17 at 15:00 Docusate Sodium (Colace) 100 mg BID PO Last administered on 06/22/17 09:17; Admin Dose 100 MG; Start 06/20/17 at 21:00 Magnesium Hydroxide (Milk Of Mag) 30 ml DAILY PRN PO CONSTIPATION; Start at 18:30 Meperidine HCl (Demerol) 25 mg ONCE PRN IV POST OPIGORS; Start 06/21/17 at 23: 00; Stop 06/22/17 at 22:59 Diphenhydramine HCl (Benadryl) 25 mg ONCE PRN IV PRURITIS; Start 06/21/17 at 23 :00; Stop 06/22/17 at 22:59 Hydromorphone HCl (Dilaudid) 0.2 mg Q5M PRN IV PAIN SCORE 5-10; Start 06/21/17 at 23:00 Fentanyl (Sublimaze) 25 mcg Q5H IV ; Start 06/21/17 at 23:00; Stop 06/22/17 at 14:01 Ondansetron HCl (Zofran Inj) 4 mg ONCE PRN IV NAUSEA AND/OR VOMITING; Start at 23:00; Stop 06/22/17 at 22:59 Prochlorperazine (Compazine Inj) 5 mg PRN PRN IV NAUSEA AND/OR VOMITING; Start 06/21/17 at 23:00 Labetalol HCl (Labetalol) 5 mg Q5M PRN IV SBP>160 OR DBP>110; Start 06/21/17 at 23:00 Hydralazine HCl 5 mg 5 mg Q20M PRN IV SBP>160 OR DBP>110 Last administered on 03:45; Admin Dose 5 MG; Start 06/21/17 at 23:00 Sodium Chloride 1,000 ml @ 80 mls/hr [id number] IV Last administered on 23:30; Admin Dose 80 MLS/HR; Start 06/21/17 at 23:30 Cefazolin Sodium (Ancef 1 Gm/50 ml (Pmx)) 50 ml @ 100 mls/hr Q8 IVPB Last administered on 06/22/17 05:41; Admin Dose 100 MLS/HR; Start 06/22/17 at 06:00 ; Stop 06/22/17 at 22:29 Morphine Sulfate (morphine) 2 mg Q2H PRN IV PAIN; Start 06/21/17 at 23:30 Acetaminophen/ Hydrocodone Bitart ([place] (5/325)) 1 tab Q3H PRN PO PAIN; Start 06/21/17 at 23:30 NANCY DILLARD Jun 22, 2017 13:37
--- NOTE | 2017-06-22 18:19 | CONS ---
Date/Time of Note Date/Time of Note DATE: 06/22/17 TIME: 18:15 Assessment/Plan Assessment/Plan Chief Complaint/Hosp Course IMP: 1.s/p fall 2.Jdx-dl-yncteorg trop x 3/NL EF by echo 3.Radial fracture s/p ORIF 4.HTN 5.cad Recc: -Tele -Continue coreg/losartan/statin -pain control - Problems: Consultation Date/Type/Reason Admit Date/Time Jun 19, 2017 at 02:07 Initial Consult Date 06/20/2017 Type of Consultation: cardiology Reason for Consultation pre-op Referring Provider: LUDIVINA HSU Exam/Review of Systems Vital Signs Vitals Vital Signs Date Time Temp Pulse Resp B/P Pulse Ox O2 Delivery O2 Flow Rate FiO2 06/22/17 16:29 79 06/22/17 15:38 98.6 18 106/56 94 06/22/17 12:07 Nasal Cannula 2.0 Intake and Output 06/21/17 06/21/17 06/22/17 15:00 23:00 07:00 Intake Total 700 ml Balance 700 ml Exam Review of Systems: CONSTITUTIONAL: No fevers, chills. PULMONARY: No sob CARDIOVASCULAR: No chest pain/palpitations GASTROINTESTINAL: No nausea/vomiting. GENITOURINARY: No hematuria/dysuria. MUSCULOSKELETAL: No myagias/arthalgias. PSYCHIATRIC: The patient denies depression. NEUROLOGIC: No weakness Constitutional: alert, oriented Head: normocephalic ENMT: mucosa pink and moist Neck: jvd, supple Respiratory: diminished breath sounds Cardiovascular: regular rate and rhythm Gastrointestinal: non-tender, soft Musculoskeletal: other (s/p ORIF ) Extremities: edema (none) Neurological: other (No focal deficits) Results Result Diagram: 06/20/17 0500 06/20/17 0719 Medications Medications Current Medications Ondansetron HCl (Zofran Inj) 4 mg Q6H PRN IV NAUSEA AND/OR VOMITING Last administered on 06/21/17 09:35; Admin Dose 4 MG; Start 06/19/17 at 05:00 Hydralazine HCl (Apresoline) 10 mg Q4H PRN IV sbp > 160 Last administered on 06:25; Admin Dose 10 MG; Start 06/19/17 at 05:00 Acetaminophen (Tylenol Tab) 500 mg Q4H PRN PO MILD PAIN AND OR ELEVATED TEMP; Start 06/19/17 at 14:30 Carvedilol (Coreg) 6.25 mg BID PO Last administered on 06/22/17 09:17; Admin Dose 6.25 MG; Start 06/19/17 at 21:00 Atorvastatin Calcium (Lipitor) 10 mg DAILY@21 PO Last administered on 20:32; Admin Dose 10 MG; Start 06/19/17 at 21:00 Losartan Potassium (Cozaar) 100 mg DAILY PO Last administered on 06/22/17 09: 17; Admin Dose 100 MG; Start 06/19/17 at 15:00 Hydrochlorothiazide (Hydrochlorothiazide) 25 mg DAILY PO Last administered on 09:17; Admin Dose 25 MG; Start 06/19/17 at 15:00 Docusate Sodium (Colace) 100 mg BID PO Last administered on 06/22/17 09:17; Admin Dose 100 MG; Start 06/20/17 at 21:00 Magnesium Hydroxide (Milk Of Mag) 30 ml DAILY PRN PO CONSTIPATION; Start at 18:30 Meperidine HCl (Demerol) 25 mg ONCE PRN IV POST OPIGORS; Start 06/21/17 at 23: 00; Stop 06/22/17 at 22:59 Diphenhydramine HCl (Benadryl) 25 mg ONCE PRN IV PRURITIS; Start 06/21/17 at 23 :00; Stop 06/22/17 at 22:59 Hydromorphone HCl (Dilaudid) 0.2 mg Q5M PRN IV PAIN SCORE 5-10; Start 06/21/17 at 23:00 Ondansetron HCl (Zofran Inj) 4 mg ONCE PRN IV NAUSEA AND/OR VOMITING; Start at 23:00; Stop 06/22/17 at 22:59 Prochlorperazine (Compazine Inj) 5 mg PRN PRN IV NAUSEA AND/OR VOMITING; Start 06/21/17 at 23:00 Labetalol HCl (Labetalol) 5 mg Q5M PRN IV SBP>160 OR DBP>110; Start 06/21/17 at 23:00 Hydralazine HCl 5 mg 5 mg Q20M PRN IV SBP>160 OR DBP>110 Last administered on 03:45; Admin Dose 5 MG; Start 06/21/17 at 23:00 Sodium Chloride 1,000 ml @ 100 mls/hr Q10H IV Last administered on 06/21/17 23:30; Admin Dose 80 MLS/HR; Start 06/21/17 at 23:30 Cefazolin Sodium (Ancef 1 Gm/50 ml (Pmx)) 50 ml @ 100 mls/hr Q8 IVPB Last administered on 06/22/17 16:03; Admin Dose 100 MLS/HR; Start 06/22/17 at 06:00 ; Stop 06/22/17 at 22:29 Morphine Sulfate (morphine) 2 mg Q2H PRN IV PAIN; Start 06/21/17 at 23:30 Acetaminophen/ Hydrocodone Bitart ([place] (5/325)) 1 tab Q3H PRN PO PAIN Last administered on 06/22/17 13:36; Admin Dose 1 TAB; Start 06/21/17 at 23:30 BUCK EMANUEL Jun 22, 2017 18:19
[2017-06-22] MEDS: ATORVASTATIN 10 MG TAB PO SCH (21:31)
[2017-06-22] MEDS ORDERED: ZOLPIDEM 5 MG TAB PO PRN (23:30)
[2017-06-22] MEDS ORDERED: morphine 2 MG INJ IV PRN (23:30)
[2017-06-23] VITALS (9 sets, daily range): BP systolic 108–133; BP diastolic 53–61; PULSE 73–83; RESP 18–20
[2017-06-23] MEDS: SOD CHLORIDE 0.9% 1,000 ML IV SCH ×2 (04:05→08:19)
--- NOTE | 2017-06-23 05:30 | OPR ---
DATE OF OPERATION: 06/21/2017 PREOPERATIVE DIAGNOSIS: Galeazzi fracture, which is the combination of a fracture involving the distal shaft of the radius combined with the separation of the distal radioulnar syndesmosis at the left wrist. POSTOPERATIVE DIAGNOSIS: Galeazzi fracture, which is the combination of a fracture involving the distal shaft of the radius combined with the separation of the distal radioulnar syndesmosis at the left wrist. PROCEDURE PERFORMED: 1. Open reduction and internal fixation of the distal shaft fracture of the left radius. 2. Manipulative reduction of the distal radioulnar syndesmosis at the left wrist. ANESTHESIA: General. SURGEON: Zulay Tian MD DESCRIPTION OF PROCEDURE: Under general anesthesia, the patient was placed in a supine position upon the operating table. A usual prep and drape was done, exposing the left upper extremity. A tourniquet was placed above the proximal portion of the left arm and was inflated up to 250 mmHg prior to the procedure. Distal shaft of the left radius was approached through the modified hand-wrist incision over the volar aspect of the distal forearm by blunt and sharp dissection and by retracting the radial artery and flexor tendons. The distal shaft of the radius was exposed. After appropriate exposure, the fracture was reduced and was held reduced and then internal fixation was carried out using a 6-hole, applied over the lateral aspect of the radius. After the internal fixation of the fracture involving the distal radius, distal radioulnar joint was examined and this was in a displaced situation. With proper management, I was able to reduce the distal radioulnar syndesmosis and further examination revealed that this reduction was fairly satisfactory, in spite of the rotational range of motion. After confirming satisfactory reduction of the syndesmosis and satisfactory alignment of the distal radius fracture with the appropriate position of the internal fixation, the closure of the incision was carried out using 0-Vicryl for muscle and fascia and 2-0 Vicryl for the subcutaneous tissues, followed by skin closure with skin nalini. Usual sterile pressure dressings were applied. The entire left upper extremity then was immobilize in a long-arm posterior splint. The patient tolerated the entire procedure very well and was sent to the recovery room in excellent condition. Dictated By: In Rebekah Tian MD /chely/genaro /Document#: [id number]
[2017-06-23 08:03] LABS: BASOPHILS % 0.4 % (0.0-2.0); EOSINOPHILS # 0.3 10^3/ul (0.0-0.5); EOSINOPHILS % 4.8 % (0.0-7.0); HEMATOCRIT 28.9 % (37.0-47.0); HEMOGLOBIN 9.6 g/dl (12.0-16.0); LYMPHOCYTES # 1.7 10^3/ul (0.8-2.9); LYMPHOCYTES % 24.7 % (15.0-51.0); MEAN CORPUSCULAR HEMOGLOBIN 28.3 pg (29.0-33.0); MEAN CORPUSCULAR HGB CONC 33.2 g/dl (32.0-37.0); MEAN CORPUSCULAR VOLUME 85.3 fl (82.0-101.0); MEAN PLATELET VOLUME 9.3 fl (7.4-10.4); MONOCYTE # 0.7 10^3/ul (0.3-0.9); MONOCYTES % 9.7 % (0.0-11.0); NEUTROPHIL # 4.2 10^3/ul (1.6-7.5); NEUTROPHILS % 60.3 % (39.0-77.0); PLATELET COUNT 153 10^3/UL (140-415); RED BLOOD COUNT 3.39 10^6/ul (4.20-5.40); RED CELL DISTRIBUTION WIDTH 12.8 % (11.5-14.5)
[2017-06-23] MEDS: DOCUSATE SODIUM 100 MG CAP PO SCH (08:20)
[2017-06-23] MEDS: LOSARTAN 50 MG TAB PO SCH (08:21)
[2017-06-23] MEDS: HYDROCHLOROTHIAZIDE 25 MG TAB PO SCH (08:21)
[2017-06-23 08:28] LABS: CALCIUM 7.9 mg/dl (8.4-10.2); CREATININE 0.95 mg/dl (0.44-1.00); POTASSIUM 3.7 mmol/L (3.5-5.1)
--- NOTE | 2017-06-23 12:18 | PDOCDIS ---
Discharge Instructions CONDITION Patient Condition: Good HOME CARE INSTRUCTIONS: Diet Instructions: Reduced Calorie ACTIVITY: Activity Restrictions: Slowly Increase Activity FOLLOW UP/APPOINTMENTS Follow-up Plan F/U WITH YOUR PCP IN 1-[address] HUTCHISON OF [facility]TH[facility] IN 1-2 WEEKS, F/U WITH HOME HEALTH NANCY DILLARD Jun 23, 2017 12:18
--- NOTE | 2017-06-23 14:18 | DS ---
Date/Time of Note Date/Time of Note DATE: 06/23/17 TIME: 14:12 Discharge Summary Admission/Discharge Info Admit Date/Time Jun 19, 2017 at 02:07 Discharge Date/Time June 23, 2017 Discharge Diagnosis 1. Left distal radial fracture status post ORIF of the distal shaft fracture of the left radius as well as manipulative reduction of the distal radioulnar syndesmosis at the left wrist. -Pain is controlled, DC with home health for PT 2. Hypertensive urgency-resolved Continue home meds 3. History of CAD -Noted with preserved EF, no acute issues, continue home meds 4. Dyslipidemia- Continue on statin medication Patient Condition: Good Hospital Course Patient is a 76-year-old female with a history of hypertension dyslipidemia and CAD who presented to the emergency department complaining of left wrist pain status post ground-level fall. X-ray in the ER shows distal radial fracture. Patient reported feeling dizzy prior to falling down. Her initial lecture when she came to the ER was 238/100. Her Doppler showed no significant stenosis. Patient states that her knee gave out and that is why she fell. Patient had a open reduction internal fixation of the distal shaft fracture of the left radius as well as reduction of the distal radioulnar syndesmosis at the left wrist. Patient was felt to be stable for discharge with home health. On the day of discharge patient's vitals, labs and physical exam are stable. She had no acute complaints and questions were answered. . Home Meds Reported Medications Potassium Gluconate (Potassium Gluconate) 500 Mg Tablet, 550 MG PO DAILY, TAB 06/19/17 Pravastatin Sodium* (Pravastatin Sodium*) 20 Mg Tablet, 20 MG PO HS, TAB 06/19/17 Carvedilol* (Carvedilol*) 6.25 Mg Tablet, 6.25 MG PO BID, #60 TAB 06/19/17 Meloxicam* (Meloxicam*) 7.5 Mg/5 Ml Oral.susp, 7.5 MG PO BID Y for PAIN, #150 ML 06/19/17 Losartan-Hydrochlorothiazide (Losartan-HCTZ) 100-25 Mg Tab, 1 TAB PO DAILY, TAB 06/19/17 Ibuprofen* (Advil*) 200 Mg Capsule, 200 MG PO Q6H Y for PAIN, CAP 06/19/17 Acetaminophen* (Acetaminophen*) 500 MG Extra Strength Tablet, 500 MG PO Q4H Y for PAIN AND OR ELEVATED TEMP, TAB 06/19/17 Discontinued Reported Medications Pravastatin Sodium* (Pravastatin Sodium*) 20 Mg Tablet, 20 MG PO HS, TAB 06/19/17 Losartan-Hydrochlorothiazide (Losartan-HCTZ) 50-12.5 Mg Tab, 1 TAB PO DAILY, TAB 06/19/17 Meloxicam* (Meloxicam*) Unknown Strength Tablet, 0 PO DAILY, #30 TAB 06/19/17 Hydrochlorothiazide (Hydrochlorothiazide) 12.5 Mg Capsule, 12.5 MG PO DAILY Y 07/07/12 Carvedilol* (Coreg*) 12.5 Mg Tablet, 12.5 MG PO BID 07/07/12 Aspirin* (Aspirin* Chew) 81 Mg Tab.chew, 81 MG PO DAILY 07/07/12 Follow-up Plan Follow-up PCP 1-2 weeks, follow-up with Dr. Tian, follow with home health Primary Care Provider Megan Grant MD Time spent on discharge: > 30 minutes NANCY DILLARD Jun 23, 2017 14:18
--- NOTE | 2017-06-23 14:25 | OPPN ---
Date/Time of Note Date/Time of Note DATE: 06/23/17 TIME: 14:24 Anesthesia Follow up Anesthesia Follow up Last documented vital signs Vital Signs Date Time Temp Pulse Resp B/P Pulse Ox O2 Delivery O2 Flow Rate FiO2 06/23/17 13:20 73 06/23/17 11:37 98.6 18 111/61 94 06/22/17 12:07 Nasal Cannula 2.0 Respiratory function: WNL Cardiovascular function: WNL Comments Pt s/p L distal radius ORIF under GA with L supraclavicular nerve block. Pt has been doing well, VSS, A&Ox3, working with PT, ambulating, pain controlled, motor and sensory intact. Pt recovered from block yesterday morning without any complications. No issues with anesthesia. IDALIA CARBAJAL MD Jun 23, 2017 14:25
[2017-06-23] MEDS ORDERED: KETOROLAC 30 MG INJ ONE (18:01)
[2017-06-23] MEDS ORDERED: ONDANSETRON 4 MG INJ ONE (18:01)
--- NOTE | 2017-06-27 13:16 | CONS ---
DATE OF ADMISSION: 06/19/2017 DATE OF CONSULTATION: 06/19/2017 HISTORY OF PRESENT ILLNESS: The patient is a 77-year-old right handed female who was admitted on 06/19/2017 when she was brought into the emergency room by family members following a ground- level fall during a prayer session. According to available information she was trying to stand up from a praying position and she fell down, landing on her left upper extremity. She denies any chest pain or dizziness at the time of fall; however, she is not sure why she had a fall and she was having some discomfort around the chest following the fall. Denies any head injuries. During the initial evaluation in the emergency room she was found to have a fracture involving the distal diaphysis of the left radius, and she was temporarily stabilized with a splint, immobilizing the left wrist, and was admitted for further medical evaluation and care of the fracture. She is known to have multiple medical problems including history of hypertension and history of coronary artery disease, history of dyslipidemia. Review of x-rays of the left forearm and wrist reveal the presence of Galeazzi fracture which is a combination of a fracture of the distal radius combined with dislocation at the distal radioulnar joint. TREATMENT PLAN: To carry out open reduction, internal fixation of the distal diaphyseal fracture of the left radius, probably utilizing plate and screws, along with the temporary fixation of the distal radioulnar joint probably using K wire fixation. She can be scheduled for the necessary surgeries when she can be medically cleared for surgery. Dictated By: In Rebekah Tian MD /chely/micky /Document#: [id number]
--- NOTE | 2017-06-28 10:12 | PN ---
DATE: SUBJECTIVE DATA: The patient is tentatively scheduled for surgical procedure, namely open reduction, internal fixation of the distal diaphyseal fracture of the right and left radius, along with the open reduction, internal fixation of the separate distal radial ulnar articulation. The patient is NPO with medical clearance. Dictated By: In Rebekah Tian MD /chely/arpit /Document#: [id number]
== END 2017-06-23 16:02 | disposition home or self-care (01) | DRG 512 ==
LOC: E/R 22:35 → MS4 06-19 02:07
PROVIDERS: ADMIT Internal Medicine; ATTEND Internal Medicine
PROC: 0RSPXZZ Reposition Left Wrist Joint, External Approach (ICD-10-PCS; 2017-06-21)
PROC: 0PSJ04Z Reposition Left Radius with Internal Fixation Device, Open Approach (ICD-10-PCS; principal; 2017-06-21 16:30)
DX: S52.372A Galeazzi's fracture of left radius, initial encounter for closed fracture (principal); D64.9 Anemia, unspecified; E66.01 Morbid (severe) obesity due to excess calories; I10 Essential (primary) hypertension; S63.592A Other specified sprain of left wrist, initial encounter; E78.5 Hyperlipidemia, unspecified; I16.0 Hypertensive urgency; Z68.35 Body mass index [BMI] 35.0-35.9, adult; I25.2 Old myocardial infarction; I25.10 Atherosclerotic heart disease of native coronary artery without angina pectoris; M19.90 Unspecified osteoarthritis, unspecified site; R42 Dizziness and giddiness; W18.30XA Fall on same level, unspecified, initial encounter; Z96.652 Presence of left artificial knee joint
CPT/HCPCS: 36415; 71010; 73090; 80048; 80053; 81001; 83735; 84100; 84484; 85025; 85610; 85730; 93005; 93306; 93880; 96374; 96376; 97116; 97162; 97530; J0131; J0360; J0690; J1100; J1885; J2250; J2270; J2370; J2405; J2765; J2795; J3010; J7030; J7040